=== PATIENT | male | born 1955 | race Caucasian/White ===

== ENCOUNTER 2017-09-19 11:32 | Observation (INO) ==
[2017-09-19 12:16] LABS: Basophils # 0.1 K/mcL (0.0-0.2); Basophils % 0.5 %; Eosinophils # 0.3 K/mcL (0.0-0.6); Eosinophils % 2.6 %; Hematocrit 36.5 % (37.5-50.1); Hemoglobin 12.3 g/dL (12.9-16.9); Immature Granulocytes % 0.5 % (0-4); Lymphocytes % 8.2 %; Mean Corpuscular HGB Conc 33.7 g/dL (31.6-35.5); Mean Corpuscular Volume 95.1 fL (83.0-100.0); Mean Platelet Volume 9.5 fL (9.4-12.4); Monocytes # 1.2 K/mcL (0.0-1.3); Monocytes % 9.6 %; Neutrophils # 9.5 K/mcL (1.6-8.9); Platelet Count 255 K/mcL (140-400); Red Blood Count 3.84 M/mcL (4.19-5.50); Red Cell Distribution Width 12.6 % (11.5-14.5); Segmented Neutrophils % 78.6 %
[2017-09-19 12:40] LABS: Troponin I < 0.03 ng/mL (< 0.04)
--- NOTE | 2017-09-19 13:03 | Emergency Department Note ---
Disposition Clinical Impression: Congestive heart failure Qualifiers: Heart failure type: combined systolic and diastolic Heart failure chronicity: acute on chronic Qualified Code(s): I50.43 - Acute on chronic combined systolic (congestive) and diastolic (congestive) heart failure Disposition: Admitted As Inpatient Condition: Undetermined Time of Disposition: 15:09 SOB HPI - General Chief Complaint: ED Shortness of Breath/Dyspnea Stated Complaint: "CHF" sent by Time Seen by Provider: 09/19/17 12:59 Source: patient Mode of arrival: ambulatory Limitations: no limitations Nursing Notes Reviewed: Yes Vital Signs Reviewed: Yes - History of Present Illness 62-year-old male with history of hypertension, hyperlipidemia, stage IV kidney disease, arrives to the emergency department complaining of increased swelling in bilateral lower extremities, orthopnea, dyspnea, chest pressure over the course the past few days. This progressively worsened. 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 Patient denies any difficulty breathing upon ambulation states is primarily when he lays down. The patient denies any previous history of swelling of bilateral extremity is this bad. He denies any abdominal pain, numbness, tingling, fevers, chills, rashes. - Related Data Home Medications Medication Instructions Recorded Confirmed Atorvastatin [Lipitor] 40 mg PO HS 02/26/15 06/30/16 Carvedilol [Coreg] 25 mg PO BID 02/26/15 06/30/16 Fluticasone Propionate [Flovent 50 mcg IH BID 02/26/15 06/30/16 Diskus] Hydralazine HCl 50 mg PO TID 02/26/15 06/30/16 Minoxidil 10 mg PO DAILY 02/26/15 06/30/16 NIFEdipine [Nifedical Xl] 60 mg PO BID 02/26/15 06/30/16 Nortriptyline [Pamelor] 25 mg PO HS 02/26/15 06/30/16 OxyCODONE/APAP 7.5/325 [Percocet 1 each PO Q6HR PRN 02/26/15 06/30/16 7.5/325] Albuterol Sulfate [Ventolin Hfa] 2 puff IH BID PRN 06/30/16 06/30/16 Ascorbate Calcium [Vitamin C] 500 mg PO DAILY 06/30/16 06/30/16 Aspirin 81 mg PO DAILY 06/30/16 06/30/16 BuPROPion XL (24 HR) [Wellbutrin 150 mg PO BID 06/30/16 06/30/16 Xl] Cholecalciferol (D-3) [Vitamin D] 1,000 unit PO DAILY 06/30/16 06/30/16 Cyanocobalamin (Vitamin B-12) 1,000 mcg SL DAILY 06/30/16 06/30/16 [Vitamin B-12] Esomeprazole Magnesium [Nexium] 20 mg PO DAILY 06/30/16 06/30/16 Ferrous Sulfate [Iron] 325 mg PO DAILY 06/30/16 06/30/16 Lysine HCl [l-Lysine] 500 mg PO DAILY 06/30/16 06/30/16 Magnesium Amino Acid Chelate 100 mg PO TID 06/30/16 06/30/16 [Magnesium] Melatonin 5 mg PO HS 06/30/16 06/30/16 Multivit-Min/FA/Lycopen/Lutein 1 each PO DAILY 06/30/16 06/30/16 [Centrum Silver Tablet] [place]-3/Dha/Epa/Fish Oil [Fish Oil 1 each PO DAILY 06/30/16 06/30/16 1,000 mg Softgel] Pregabalin [Lyrica] 150 mg PO HS 06/30/16 06/30/16 Testosterone Cypionate 100 mg IM QWEEK 06/30/16 06/30/16 [Depo-Testosterone] Trazodone HCl 50 mg PO HS 06/30/16 06/30/16 cloNIDine HCl [CloNIDine HCl] 0.1 mg PO HS 06/30/16 06/30/16 Allergies Allergy/AdvReac Type Severity Reaction Status Date / Time No Known Allergies Allergy Verified 06/30/16 10:28 All systems ED: reviewed and negative except as stated. Constitutional: Denies: fever, chills, weakness ENT ED: Denies: congestion Cardiovascular: Reports: chest pain, orthopnea, edema. Denies: dyspnea on exertion, syncope Respiratory: Reports: dyspnea. Denies: cough, wheezes, sputum production Gastrointestinal: Denies: abdominal pain Genitourinary: Denies: urgency, dysuria Musculoskeletal: Denies: back pain, neck pain, arthralgia, myalgia Integumentary: Denies: rash Neurological: Denies: headache Past Medical History - Past Medical History Attestation: Yes The following information was validated with the patient. Source: patient, old records reviewed Medical history: Reports: coronary artery disease, GERD, hyperlipidemia, hypertension, renal disease Surgical history: Reports: non-contributory Psychiatric history: Reports: no psych history - Social History Smoking Status: Never smoker Smokeless Tobacco Status: No Alcohol use: Reports: none Drug use: Reports: none Physical Exam - General Limitations: no limitations General appearance: alert, in no apparent distress - Head Head exam: atraumatic, normocephalic, normal inspection - Eye Eye exam: Present: normal appearance, PERRL, EOMI - ENT ENT exam: normal exam, normal oropharynx, mucous membranes moist - Neck Neck exam: Present: normal inspection, full ROM, trachea midline - Chest Chest inspection: Present: normal inspection, symmetric chest wall rise - Respiratory Respiratory exam: Present: other (Mild rhonchi noted in bilateral lower lobes) - Cardiovascular Cardiovascular exam: Present: regular rate, normal rhythm, normal heart sounds - Abdominal Exam Abdominal exam: Present: soft, Non-Tender, distention. Absent: tenderness, guarding, rebound, rigidity, Quintero's sign, Rovsing's sign, tenderness at McBurney's Point, pulsatile mass - Extremities Exam Extremities exam: Present: normal inspection, full ROM, pedal edema (2+ pitting) . Absent: tenderness - Neurological Exam Neurological exam: Present: alert, oriented X3 - Skin Skin exam: Present: warm, dry, intact, normal color Course - Consultations Consultation #1: We spoke with Dr. Theodore who recommended 40 of IV Lasix at this time. We will get the patient to the hospital. She agrees to consult. Time: 15:27 Vital Signs Temperature 97.8 F 09/19/17 11:37 Pulse Rate 89 09/19/17 11:37 Respiratory Rate 22 09/19/17 11:37 Blood Pressure 133/78 09/19/17 11:37 O2 Sat by Pulse Oximetry 93 09/19/17 11:37 Temperature 97.8 F 09/19/17 11:37 Pulse Rate 89 09/19/17 11:37 Respiratory Rate 22 09/19/17 11:37 Blood Pressure 133/78 09/19/17 11:37 O2 Sat by Pulse Oximetry 93 04/18/18 11:37 Oxygen Delivery Oxygen Delivery Room Air Shortness of Breath/Dyspnea - MDM Narrative Medical decision making narrative: Patient's workup in the emergency department demonstrates findings consistent with CHF. Given the patient's orthopnea combined with bilateral lower surety pain, we will admit the patient to the hospital for further workup and care at this time. The patient has pulmonary vascular congestion without any pulmonary edema. Patient agrees to plan of care. No further questions or concerns noted. Accepted by Dr. Morelos. - Lab Data Lab results reviewed: Yes I reviewed the patient's lab results. Result diagrams: 09/19/17 11:52 09/19/17 11:52 Lab Results 09/19/17 09/19/17 09/19/17 Range/Units 11:52 11:52 11:52 WBC 12.0 H (4.3-11.1) K/mcL RBC 3.84 L (4.19-5.50) M/mcL Hgb 12.3 L (12.9-16.9) g/dL Hct 36.5 L (37.5-50.1) % MCV 95.1 (83.0-100.0) fL MCH 32.0 (28.0-33.3) pg MCHC 33.7 (31.6-35.5) g/dL RDW 12.6 (11.5-14.5) % Plt Count 255 (140-400) K/mcL MPV 9.5 (9.4-12.4) fL Immature Gran % 0.5 (0-4) % Seg Neutrophils % 78.6 % Lymphocytes % 8.2 % Monocytes % 9.6 % Eosinophils % 2.6 % Basophils % 0.5 % Neutrophils # 9.5 H (1.6-8.9) K/mcL Lymphocytes # 1.0 (0.6-4.6) K/mcL Monocytes # 1.2 (0.0-1.3) K/mcL Eosinophils # 0.3 (0.0-0.6) K/mcL Basophils # 0.1 (0.0-0.2) K/mcL Sodium 138 (136-145) mEq/L Potassium 4.4 (3.5-5.1) mEq/L Chloride 107 (98-107) mEq/L Carbon Dioxide 23 (23-29) mEq/L BUN 42 H (8-23) mg/dL Creatinine 2.58 H (0.70-1.30) mg/dL Est GFR ( Amer) 31 L (> 60) Est GFR (Non-Af Amer) 26 L (> 60) BUN/Creatinine Ratio 16 (6-26) Glucose 169 H (70-105) mg/dL Calculated Osmolality 300 (280-300) Lactic Acid 1.5 (0.5-2.2) mmol/L Calcium 9.5 (8.6-10.3) mg/dL Troponin I < 0.03 (< 0.04) ng/mL B-Natriuretic Peptide (Less than 100) pg/mL 09/19/17 Range/Units 11:52 WBC (4.3-11.1) K/mcL RBC (4.19-5.50) M/mcL Hgb (12.9-16.9) g/dL Hct (37.5-50.1) % MCV (83.0-100.0) fL MCH (28.0-33.3) pg MCHC (31.6-35.5) g/dL RDW (11.5-14.5) % Plt Count (140-400) K/mcL MPV (9.4-12.4) fL Immature Gran % (0-4) % Seg Neutrophils % % Lymphocytes % % Monocytes % % Eosinophils % % Basophils % % Neutrophils # (1.6-8.9) K/mcL Lymphocytes # (0.6-4.6) K/mcL Monocytes # (0.0-1.3) K/mcL Eosinophils # (0.0-0.6) K/mcL Basophils # (0.0-0.2) K/mcL Sodium (136-145) mEq/L Potassium (3.5-5.1) mEq/L Chloride (98-107) mEq/L Carbon Dioxide (23-29) mEq/L BUN (8-23) mg/dL Creatinine (0.70-1.30) mg/dL Est GFR ( Amer) (> 60) Est GFR (Non-Af Amer) (> 60) BUN/Creatinine Ratio (6-26) Glucose (70-105) mg/dL Calculated Osmolality (280-300) Lactic Acid (0.5-2.2) mmol/L Calcium (8.6-10.3) mg/dL Troponin I (< 0.04) ng/mL B-Natriuretic Peptide 826 H (Less than 100) pg/mL - Radiology Data Radiology results reviewed: Yes I reviewed the patient's radiology results. Chest X-Ray 09/19/17 11:40 IMPRESSION: Findings suggest congestive heart failure D/ / Adama Lopez MD / Adama Lopez MD Interpreting Provider: Adama Lopez MD - EKG Data EKG attestation: Yes I reviewed and interpreted this EKG. EKG results narrative: 6 heart rate 65 beats for minute. Normal sinus rhythm. No ST elevation or ST depression noted. EKG similar appearance to EKG from 06/22/16.
[2017-09-19 13:22] LABS: BUN/Creatinine Ratio 16 (6-26); Blood Urea Nitrogen 42 mg/dL (8-23); Calcium 9.5 mg/dL (8.6-10.3); Carbon Dioxide 23 mEq/L (23-29); Chloride 107 mEq/L (98-107); Glucose 169 mg/dL (70-105); Osmolality,Calculated 300 (280-300); Potassium 4.4 mEq/L (3.5-5.1); Sodium 138 mEq/L (136-145); eGFR For African Americans 31 (> 60); eGFR For Non-African Americans 26 (> 60)
--- NOTE | 2017-09-19 14:59 | Emergency Department Note ---
Disposition Clinical Impression: Congestive heart failure Qualifiers: Heart failure type: combined systolic and diastolic Heart failure chronicity: acute on chronic Qualified Code(s): I50.43 - Acute on chronic combined systolic (congestive) and diastolic (congestive) heart failure Disposition: Admitted As Inpatient Condition: Undetermined Referrals: Kayla Hamilton CNP [Primary Care Provider] - Forms: ED Satisfaction Letter General Adult HPI - General Chief complaint: ED Shortness of Breath/Dyspnea Stated complaint: "CHF" sent by Time Seen by Provider: 09/19/17 12:59 Source: patient Mode of arrival: ambulatory Limitations: no limitations - History of Present Illness Pain Scale: 8 - Related Data Home Medications Medication Instructions Recorded Confirmed Atorvastatin [Lipitor] 40 mg PO HS 02/26/15 06/30/16 Carvedilol [Coreg] 25 mg PO BID 02/26/15 06/30/16 Fluticasone Propionate [Flovent 50 mcg IH BID 02/26/15 06/30/16 Diskus] Hydralazine HCl 50 mg PO TID 02/26/15 06/30/16 Minoxidil 10 mg PO DAILY 02/26/15 06/30/16 NIFEdipine [Nifedical Xl] 60 mg PO BID 02/26/15 06/30/16 Nortriptyline [Pamelor] 25 mg PO HS 02/26/15 06/30/16 OxyCODONE/APAP 7.5/325 [Percocet 1 each PO Q6HR PRN 02/26/15 06/30/16 7.5/325] Albuterol Sulfate [Ventolin Hfa] 2 puff IH BID PRN 06/30/16 06/30/16 Ascorbate Calcium [Vitamin C] 500 mg PO DAILY 06/30/16 06/30/16 Aspirin 81 mg PO DAILY 06/30/16 06/30/16 BuPROPion XL (24 HR) [Wellbutrin 150 mg PO BID 06/30/16 06/30/16 Xl] Cholecalciferol (D-3) [Vitamin D] 1,000 unit PO DAILY 06/30/16 06/30/16 Cyanocobalamin (Vitamin B-12) 1,000 mcg SL DAILY 06/30/16 06/30/16 [Vitamin B-12] Esomeprazole Magnesium [Nexium] 20 mg PO DAILY 06/30/16 06/30/16 Ferrous Sulfate [Iron] 325 mg PO DAILY 06/30/16 06/30/16 Lysine HCl [l-Lysine] 500 mg PO DAILY 06/30/16 06/30/16 Magnesium Amino Acid Chelate 100 mg PO TID 06/30/16 06/30/16 [Magnesium] Melatonin 5 mg PO HS 06/30/16 06/30/16 Multivit-Min/FA/Lycopen/Lutein 1 each PO DAILY 06/30/16 06/30/16 [Centrum Silver Tablet] [place]-3/Dha/Epa/Fish Oil [Fish Oil 1 each PO DAILY 06/30/16 06/30/16 1,000 mg Softgel] Pregabalin [Lyrica] 150 mg PO HS 06/30/16 06/30/16 Testosterone Cypionate 100 mg IM QWEEK 06/30/16 06/30/16 [Depo-Testosterone] Trazodone HCl 50 mg PO HS 06/30/16 06/30/16 cloNIDine HCl [CloNIDine HCl] 0.1 mg PO HS 06/30/16 06/30/16 Allergies Allergy/AdvReac Type Severity Reaction Status Date / Time No Known Allergies Allergy Verified 06/30/16 10:28 Constitutional: Denies: fever, chills, weakness ENT ED: Denies: congestion Cardiovascular: Reports: chest pain, orthopnea, edema. Denies: dyspnea on exertion, syncope Respiratory: Reports: dyspnea. Denies: cough, wheezes, sputum production Gastrointestinal: Denies: abdominal pain Genitourinary: Denies: urgency, dysuria Musculoskeletal: Denies: back pain, neck pain, arthralgia, myalgia Integumentary: Denies: rash Neurological: Denies: headache Past Medical History - Past Medical History Medical history: Reports: coronary artery disease, GERD, hyperlipidemia, hypertension, renal disease Surgical history: Reports: non-contributory Psychiatric history: Reports: no psych history - Social History Smoking Status: Never smoker Smokeless Tobacco Status: No Alcohol use: Reports: none Drug use: Reports: none Physical Exam - General Limitations: no limitations General appearance: alert, in no apparent distress Course Vital Signs Temperature 97.8 F 09/19/17 11:37 Pulse Rate 89 09/19/17 11:37 Respiratory Rate 22 09/19/17 11:37 Blood Pressure 133/78 09/19/17 11:37 O2 Sat by Pulse Oximetry 93 09/19/17 11:37 Temperature 97.8 F 09/19/17 11:37 Pulse Rate 89 09/19/17 11:37 Respiratory Rate 22 09/19/17 11:37 Blood Pressure 133/78 09/19/17 11:37 O2 Sat by Pulse Oximetry 93 09/19/17 11:37 Oxygen Delivery Oxygen Delivery Room Air Medical Decision Making - Lab Data Result diagrams: 09/19/17 11:52 09/19/17 11:52 Lab Results 09/19/17 09/19/17 09/19/17 Range/Units 11:52 11:52 11:52 WBC 12.0 H (4.3-11.1) K/mcL RBC 3.84 L (4.19-5.50) M/mcL Hgb 12.3 L (12.9-16.9) g/dL Hct 36.5 L (37.5-50.1) % MCV 95.1 (83.0-100.0) fL MCH 32.0 (28.0-33.3) pg MCHC 33.7 (31.6-35.5) g/dL RDW 12.6 (11.5-14.5) % Plt Count 255 (140-400) K/mcL MPV 9.5 (9.4-12.4) fL Immature Gran % 0.5 (0-4) % Seg Neutrophils % 78.6 % Lymphocytes % 8.2 % Monocytes % 9.6 % Eosinophils % 2.6 % Basophils % 0.5 % Neutrophils # 9.5 H (1.6-8.9) K/mcL Lymphocytes # 1.0 (0.6-4.6) K/mcL Monocytes # 1.2 (0.0-1.3) K/mcL Eosinophils # 0.3 (0.0-0.6) K/mcL Basophils # 0.1 (0.0-0.2) K/mcL Sodium 138 (136-145) mEq/L Potassium 4.4 (3.5-5.1) mEq/L Chloride 107 (98-107) mEq/L Carbon Dioxide 23 (23-29) mEq/L BUN 42 H (8-23) mg/dL Creatinine 2.58 H (0.70-1.30) mg/dL Est GFR ( Amer) 31 L (> 60) Est GFR (Non-Af Amer) 26 L (> 60) BUN/Creatinine Ratio 16 (6-26) Glucose 169 H (70-105) mg/dL Calculated Osmolality 300 (280-300) Lactic Acid 1.5 (0.5-2.2) mmol/L Calcium 9.5 (8.6-10.3) mg/dL Troponin I < 0.03 (< 0.04) ng/mL B-Natriuretic Peptide (Less than 100) pg/mL 09/19/17 Range/Units 11:52 WBC (4.3-11.1) K/mcL RBC (4.19-5.50) M/mcL Hgb (12.9-16.9) g/dL Hct (37.5-50.1) % MCV (83.0-100.0) fL MCH (28.0-33.3) pg MCHC (31.6-35.5) g/dL RDW (11.5-14.5) % Plt Count (140-400) K/mcL MPV (9.4-12.4) fL Immature Gran % (0-4) % Seg Neutrophils % % Lymphocytes % % Monocytes % % Eosinophils % % Basophils % % Neutrophils # (1.6-8.9) K/mcL Lymphocytes # (0.6-4.6) K/mcL Monocytes # (0.0-1.3) K/mcL Eosinophils # (0.0-0.6) K/mcL Basophils # (0.0-0.2) K/mcL Sodium (136-145) mEq/L Potassium (3.5-5.1) mEq/L Chloride (98-107) mEq/L Carbon Dioxide (23-29) mEq/L BUN (8-23) mg/dL Creatinine (0.70-1.30) mg/dL Est GFR ( Amer) (> 60) Est GFR (Non-Af Amer) (> 60) BUN/Creatinine Ratio (6-26) Glucose (70-105) mg/dL Calculated Osmolality (280-300) Lactic Acid (0.5-2.2) mmol/L Calcium (8.6-10.3) mg/dL Troponin I (< 0.04) ng/mL B-Natriuretic Peptide 826 H (Less than 100) pg/mL Attestation Statement - Attestation Attestation: I examined this patient and my medical decision-making was reviewed with the Resident Physician. I agree with the documented findings, disposition and treatment plan as described except to the extent set forth below. Patient to the ED with a chief complaint of CHF. Diagnosis for him. Patient has kidney disease states he cannot put him on Lasix because of his renal function. He has had increased swelling and dyspnea on exertion. On exam he is not in any distress sitting in bed. Rales in bases and pitting edema to his lower extremities. Plan. Cardiac workup shows elevated BNP. Chest x-ray consistent with CHF. Patient will be admitted to medicine.
[2017-09-19] MEDS ORDERED: Furosemide 40 MG/4 ML VIAL IVP ONE (15:26)
[2017-09-19] MEDS ORDERED: Naloxone 0.4 MG/ML INJ IVP PRN (16:58)
[2017-09-19] MEDS: *HR* OxyCODONE/APAP 7.5/325 TABLET PO SCH (18:46)
--- NOTE | 2017-09-19 18:53 | Internal Med History&Physical ---
<Dre Agosto J - Last Filed: 09/19/17 18:49> Date of Encounter: 09/19/17 Time of Encounter: 18:49 Internal Medicine - H&P: HPI Chief complaint: Shortness of breath, cough and bilateral lower extremity swelling Admitted From: Home Plans for Post Hospital Care: Home History of present illness: Mr. Bolanos is a 62 year old male with a PMH of CAD, GERD, HLD, HTN and CKD stage IV. 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 He reports that his shortness of breath is ongoing and has been getting progressively worse as has his swelling. His shortness of breath is aggravated with exertion and minimally improves with rest. He denies any fever, chills, dizziness, abdominal pain, nausea, vomiting, diarrhea, dysuria, extremity pain. Chest x-ray today shows congestive heart failure, BNP of 826. He is being admitted d/t continued dyspnea secondary to CHF Past Med Surg Social Fam HX - Past Medical History Medical history: coronary artery disease, GERD, hyperlipidemia, hypertension, peripheral artery disease, renal disease Psychiatric history: anxiety - Past Surgical History Surgical History: non-contributory - Social History Smoking Status: Current every day smoker Packs per day: <1 Smokeless Tobacco Status: No Alcohol use: rarely Drug use: none - Family History Mother History Unknown: Yes Internal Medicine - H&P: Meds Atorvastatin [Lipitor] 40 mg PO HS 02/26/15 [History] Carvedilol [Coreg] 25 mg PO BID 02/26/15 [History] Hydralazine HCl 100 mg PO TID 02/26/15 [History] Minoxidil 10 mg PO DAILY 02/26/15 [History] NIFEdipine [Nifedical Xl] 60 mg PO BID 02/26/15 [History] OxyCODONE/APAP 7.5/325 [Percocet 7.5/325] 1 each PO Q4HR 02/26/15 [History] Albuterol Sulfate [Ventolin Hfa] 2 puff IH BID PRN 06/30/16 [History] Ascorbate Calcium [Vitamin C] 500 mg PO DAILY 06/30/16 [History] Aspirin 81 mg PO DAILY 06/30/16 [History] BuPROPion XL (24 HR) [Wellbutrin Xl] 150 mg PO BID 06/30/16 [History] Cholecalciferol (D-3) [Vitamin D] 1,000 unit PO DAILY 06/30/16 [History] Cyanocobalamin (Vitamin B-12) [Vitamin B-12] 1,000 mcg SL DAILY 06/30/16 [ History] Ferrous Sulfate [Iron] 325 mg PO DAILY 06/30/16 [History] Multivit-Min/FA/Lycopen/Lutein [Centrum Silver Tablet] 1 each PO DAILY 06/30/16 [History] [place]-3/Dha/Epa/Fish Oil [Fish Oil 1,000 mg Softgel] 1 each PO DAILY 06/30/16 [ History] Testosterone Cypionate [Depo-Testosterone] 100 mg IM QWEEK 06/30/16 [History] Fluticasone Propionate Nasal [Flonase] 1 spr NS BID 09/19/17 [History] Meclizine HCl [Verticalm] 25 mg PO Q6H 09/19/17 [History] Ondansetron ODT [Zofran ODT] 4 mg SL Q4HR 09/19/17 [History] Pregabalin [Lyrica] 75 mg PO BID 09/19/17 [History] Umeclidinium Brm/Vilanterol Tr [Anoro Ellipta 62.5-25 Mcg INH] 1 puff IH DAILY 09/19/17 [History] Vitamin E (Dl,Tocopheryl Acet) [Vitamin E] 400 unit PO DAILY 09/19/17 [History] clonazePAM [Klonopin] 1 tab PO BID 09/19/17 [History] hydroCHLOROthiazide [Hydrochlorothiazide] 25 mg PO DAILY 09/19/17 [History] 3 Allergy/AdvReac Type Severity Reaction Status Date / Time No Known Allergies Allergy Verified 06/30/16 10:28 All Systems PM: A 10-system review of systems was performed and is negative for pertinent findings except as documented above in the HPI. Review of systems: REVIEW OF SYSTEMS GENERAL: Negative for any nausea, vomiting, fevers, chills, or weight loss. NEUROLOGIC: Negative for any blurry vision, blind spots, double vision, facial asymmetry, dysphagia, dysarthria, hemiparesis, hemisensory deficits, vertigo, ataxia. HEENT: Negative for any head trauma, neck trauma, neck stiffness, photophobia, phonophobia, sinusitis, rhinitis. CARDIAC: Positive for chest pain, bilateral lower extremity peripheral edema, orthopnea and dyspnea on exertion PULMONARY: Negative for any wheezing, COPD, or TB exposure. GASTROINTESTINAL: Negative for any abdominal pain, nausea, vomiting, bright red blood per rectum, melena. GENITOURINARY: Negative for any dysuria, hematuria, incontinence. INTEGUMENTARY: Negative for any rashes, cuts, insect bites. RHEUMATOLOGIC: Negative for any joint pains, photosensitive rashes, history of vasculitis or kidney problems. HEMATOLOGIC: Negative for any abnormal bruising, frequent infections or bleeding. - Constitutional Vitals: Temp Pulse Resp BP Pulse Ox 97.3 F L 69 15 167/84 92 09/19/17 16:42 09/19/17 16:42 09/19/17 16:42 09/19/17 16:42 09/19/17 16:42 General appearance: Present: cooperative, A&O X 3, no acute distress, answers questions appropriately Exam: PHYSICAL EXAMINATION: GENERAL: The patient is an ill-appearing male in mild respiratory distress. He is alert and oriented x3. HEENT: Head is normocephalic and atraumatic. Extraocular muscles are intact. Pupils are equal, round, and reactive to light and accommodation. NECK: Supple. No carotid bruits. No lymphadenopathy or thyromegaly. LUNGS: Diminished to auscultation with bilateral posterior lobe fine crackles HEART: Regular rate and rhythm without murmur S1, S2. ABDOMEN: Soft, nontender, and nondistended. Positive bowel sounds. No hepatosplenomegaly was noted. EXTREMITIES: 1+ BLE pitting edema SKIN: No ulceration rashes or lesions present Internal Med - H&P Results - Labs CBC & Chem 7: 09/19/17 11:52 09/19/17 11:52 - EKG Data -: EKG Interpreted by Myself EKG shows normal: sinus rhythm - EKG Data EKG comments: I have reviewed the EKG, normal sinus rhythm rate of [address] elevation or depression noted 09/19/17 19:14 - Assessment and plan (1) Congestive heart failure Current Visit: Yes Status: Acute Assessment and plan: Presents today with dyspnea, and increased swelling in BLE with 1 + pitting edema He was instructed to come to the ED following his nephrology appointment today Has a history of stage IV renal disease -No recent echo on file -TTE -CXR concerning for congestive heart failure -BNP 826 -start Lasix 40 mg IV push twice a day- further recommendations for diuretic use per Nephrology -Strict intake and output monitoring -Daily weights -Continuous telemetry, continuous SPO2 monitoring -O2 per nasal cannula titrate to maintain SPO2 greater than 92% -CBCD, BMP in am -Continue home medications -Consult to nephrology-ED physician spoke Dr. Dahl's group who will see in consultation. Qualifiers: Heart failure type: combined systolic and diastolic Heart failure chronicity: acute on chronic Qualified Code(s): I50.43 - Acute on chronic combined systolic (congestive) and diastolic (congestive) heart failure (2) CAD (coronary artery disease) Current Visit: Yes Status: Acute Assessment and plan: Continue aspirin, Lipitor, Coreg, hydralazine Qualifiers: Coronary Disease-Associated Artery/Lesion type: unspecified vessel or lesion type [place] vs. transplanted heart: [place] heart Associated angina: angina presence unspecified Qualified Code(s): I25.10 - Atherosclerotic heart disease of [place] coronary artery without angina pectoris (3) GERD (gastroesophageal reflux disease) Current Visit: Yes Status: Acute Qualifiers: Qualified Code(s): K21.9 - Gastro-esophageal reflux disease without esophagitis (4) HLD (hyperlipidemia) Current Visit: Yes Status: Acute Qualifiers: Hyperlipidemia type: unspecified Qualified Code(s): E78.5 - Hyperlipidemia , unspecified (5) HTN (hypertension) Current Visit: Yes Status: Acute Assessment and plan: Continue anti-HTN medications Qualifiers: Hypertension type: unspecified Qualified Code(s): I10 - Essential (primary ) hypertension (6) CKD (chronic kidney disease), stage IV Current Visit: Yes Status: Acute Assessment and plan: History of CKD stage IV, follows with Dr. Coon's group. Today's serum creatinine, BUN and GFR at patient's baseline. -Consult to nephrology (7) DVT prophylaxis Current Visit: Yes Status: Acute Assessment and plan: Heparin 5000 units SC BID - Time Spent With Patient Total time spent is greater than 50% in coordination of care (as documented) at patient's floor/unit and/or counseling patient: 25 - 35 minutes <Lacey Jasso - Last Filed: 09/19/17 21:12> Date of Encounter: 09/19/17 Internal Medicine - H&P: HPI History of present illness: Mr. Bolanos is a 62 year old male Past Med Surg Social Fam HX - Family History Mother History Unknown: Yes Father Living Status: Hx Family Cardiac Disorders: Yes All Systems PM: A 10-system review of systems was performed and is negative for pertinent findings except as documented above in the HPI. - Constitutional Vitals: Temp Pulse Resp BP Pulse Ox 98.1 F 65 16 183/93 95 09/19/17 20:57 09/19/17 20:57 09/19/17 20:57 09/19/17 20:57 09/19/17 20:57 Internal Med - H&P Results - Labs CBC & Chem 7: 09/19/17 11:52 09/19/17 11:52 - Attending Attestation Reviewed and agreed with the plan. - Assessment and plan (1) Congestive heart failure Current Visit: Yes Status: Acute Qualifiers: Heart failure type: combined systolic and diastolic Heart failure chronicity: acute on chronic Qualified Code(s): I50.43 - Acute on chronic combined systolic (congestive) and diastolic (congestive) heart failure (2) CAD (coronary artery disease) Current Visit: Yes Status: Acute Qualifiers: Coronary Disease-Associated Artery/Lesion type: unspecified vessel or lesion type [place] vs. transplanted heart: [place] heart Associated angina: angina presence unspecified Qualified Code(s): I25.10 - Atherosclerotic heart disease of [place] coronary artery without angina pectoris (3) GERD (gastroesophageal reflux disease) Current Visit: Yes Status: Acute Qualifiers: Qualified Code(s): K21.9 - Gastro-esophageal reflux disease without esophagitis (4) HLD (hyperlipidemia) Current Visit: Yes Status: Acute Qualifiers: Hyperlipidemia type: unspecified Qualified Code(s): E78.5 - Hyperlipidemia , unspecified (5) HTN (hypertension) Current Visit: Yes Status: Acute Qualifiers: Hypertension type: unspecified Qualified Code(s): I10 - Essential (primary ) hypertension (6) CKD (chronic kidney disease), stage IV Current Visit: Yes Status: Acute (7) DVT prophylaxis Current Visit: Yes Status: Acute - Time Spent With Patient Total time spent is greater than 50% in coordination of care (as documented) at patient's floor/unit and/or counseling patient:
[2017-09-19] MEDS ORDERED: clonazePAM 0.5 MG TABLET PO SCH (21:00)
[2017-09-19] MEDS: Pregabalin 75 MG CAPSULE PO SCH (21:39)
[2017-09-19] MEDS: BuPROPion XL (24 HR) 150 MG TABLET PO SCH (21:39)
[2017-09-19] MEDS: NIFEdipine XL (24 HR) 60 MG TAB.ER.24 PO SCH (21:40)
[2017-09-19] MEDS: clonazePAM 0.5 MG TABLET PO SCH (21:40)
[2017-09-19] MEDS: hydrALAZINE 25 MG TABLET PO SCH (21:41)
[2017-09-20] MEDS: *HR* OxyCODONE/APAP 7.5/325 TABLET PO SCH ×3 (00:04→08:20)
[2017-09-20] MEDS: Fluticasone Propionate Nasal 50 MCG/SPRAY BOTTLE NS SCH ×3 (00:04→21:39)
[2017-09-20 04:04] LABS: Basophils % 0.5 %; Eosinophils # 0.3 K/mcL (0.0-0.6); Eosinophils % 3.2 %; Hematocrit 34.2 % (37.5-50.1); Hemoglobin 11.6 g/dL (12.9-16.9); Immature Granulocytes % 0.5 % (0-4); Lymphocytes # 1.1 K/mcL (0.6-4.6); Mean Corpuscular HGB Conc 33.9 g/dL (31.6-35.5); Mean Corpuscular Hemoglobin 32.8 pg (28.0-33.3); Mean Corpuscular Volume 96.6 fL (83.0-100.0); Mean Platelet Volume 9.5 fL (9.4-12.4); Monocytes # 0.8 K/mcL (0.0-1.3); Monocytes % 10.1 %; Neutrophils # 5.5 K/mcL (1.6-8.9); Platelet Count 252 K/mcL (140-400); Red Blood Count 3.54 M/mcL (4.19-5.50); Red Cell Distribution Width 12.5 % (11.5-14.5); Segmented Neutrophils % 71.7 %
[2017-09-20 04:31] LABS: Calcium 9.1 mg/dL (8.6-10.3); Potassium 4.8 mEq/L (3.5-5.1)
[2017-09-20] MEDS: *HR* Heparin 5,000 UNIT/ML VIAL SQ SCH ×2 (05:13→16:46)
[2017-09-20] MEDS: Pregabalin 75 MG CAPSULE PO SCH ×2 (08:08→21:38)
[2017-09-20] MEDS: hydrALAZINE 25 MG TABLET PO SCH ×3 (08:08→21:38)
[2017-09-20] MEDS: hydroCHLOROthiazide 25 MG TABLET PO SCH (08:08)
[2017-09-20] MEDS: Multivit/Ca/Min/Fe/FA 1 TAB TABLET PO SCH (08:08)
[2017-09-20] MEDS: Ascorbic Acid 500 MG TABLET PO SCH (08:08)
[2017-09-20] MEDS: BuPROPion XL (24 HR) 150 MG TABLET PO SCH ×2 (08:08→21:38)
[2017-09-20] MEDS: NIFEdipine XL (24 HR) 60 MG TAB.ER.24 PO SCH ×2 (08:09→21:38)
[2017-09-20] MEDS: Cholecalciferol (D-3) 1,000 UNIT TABLET PO SCH (08:09)
[2017-09-20] MEDS: Cyanocobalamin (B-12) 1,000 MCG TABLET PO SCH (08:09)
[2017-09-20] MEDS: clonazePAM 0.5 MG TABLET PO SCH ×2 (08:09→21:38)
[2017-09-20] MEDS: Aspirin 81 MG TAB.CHEW PO SCH (08:09)
[2017-09-20] MEDS: Furosemide 40 MG/4 ML VIAL IVP SCH ×2 (08:09→16:46)
[2017-09-20] MEDS ORDERED: (Umeclidinium Brm/Vilanterol Tr [Anoro Ellipta 62.5-2) IH SCH (09:00)
[2017-09-20] MEDS ORDERED: (Omega-3/Dha/Epa/Fish Oil [Fish Oil 1,000 Mg Softgel]) PO SCH (09:00)
--- NOTE | 2017-09-20 10:36 | Internal Med Progress Note ---
Date of Encounter: 09/20/17 Time of Encounter: 10:34 - Assessment and plan (1) Congestive heart failure Current Visit: Yes Status: Acute Assessment and plan: Patient has lower extremity edema that he says is nothing like his baseline. He has also been complaining of shortness of breath. He was found to have findings of CHF on x-ray with elevated BNP. He was recently admitted and discharged for CHF from an outside facility. We will continue with diuresis and monitor his kidney function given his history of chronic kidney disease stage IV. Nephrology is consulted. We will request records. Monitor I&O's. Echo is pending. Possible discharge tomorrow. Qualifiers: Heart failure type: combined systolic and diastolic Heart failure chronicity: acute on chronic Qualified Code(s): I50.43 - Acute on chronic combined systolic (congestive) and diastolic (congestive) heart failure (2) CAD (coronary artery disease) Current Visit: Yes Status: Acute Assessment and plan: Continue aspirin, Lipitor, Coreg, hydralazine Qualifiers: Coronary Disease-Associated Artery/Lesion type: unspecified vessel or lesion type [place] vs. transplanted heart: [place] heart Associated angina: angina presence unspecified Qualified Code(s): I25.10 - Atherosclerotic heart disease of [place] coronary artery without angina pectoris (3) HLD (hyperlipidemia) Current Visit: Yes Status: Acute Assessment and plan: Continue statin Qualifiers: Hyperlipidemia type: unspecified Qualified Code(s): E78.5 - Hyperlipidemia , unspecified (4) HTN (hypertension) Current Visit: Yes Status: Acute Assessment and plan: Continue anti-HTN medications Qualifiers: Hypertension type: unspecified Qualified Code(s): I10 - Essential (primary ) hypertension (5) CKD (chronic kidney disease), stage IV Current Visit: Yes Status: Acute Assessment and plan: 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 Nephrology is consulted here. Monitor kidney function while diuresing. (6) DVT prophylaxis Current Visit: Yes Status: Acute Assessment and plan: Heparin 5000 units SC BID - Time Spent With Patient Total time spent is greater than 50% in coordination of care (as documented) at patient's floor/unit and/or counseling patient: - Subjective Interval history: Patient was seen and examined. Diuresed well. Admitted with signs of heart failure. He is on room air. Has been complaining of shortness of breath while ambulating. He tells me that he was recently discharged about a week ago from [facility] and was diagnosed with CHF. I do not have records of this. - Constitutional Vitals: Temp Pulse Resp BP Pulse Ox 97.4 F L 65 16 143/73 90 09/20/17 07:30 09/20/17 07:30 09/20/17 07:30 09/20/17 07:30 09/20/17 07:30 General appearance: Present: cooperative, A&O X 3, no acute distress, answers questions appropriately Exam: GEN: NAD CVS: RRR. S1, S2, No m/r/g RESP: Bibasilar crackles ABD: Soft, NT, ND, +BS EXT: 1+ edema. 2+ DP. No rashes NEURO: Nonfocal Internal Medicine: Result - Labs CBC & Chem 7: 09/20/17 03:44 09/20/17 03:44 Labs: Short CBC 09/20/17 Range/Units 03:44 WBC 7.7 (4.3-11.1) K/mcL Hgb 11.6 L (12.9-16.9) g/dL Hct 34.2 L (37.5-50.1) % Plt Count 252 (140-400) K/mcL Neutrophils # 5.5 (1.6-8.9) K/mcL BMP 09/20/17 03:44 Sodium 139 Potassium 4.8 Chloride 107 Carbon Dioxide 26 BUN 45 H Creatinine 2.61 H Glucose 175 H Calcium 9.1 Consult Discharge Plan - Plan Referrals: Kayla Hamilton, DITCH WORKER [Primary Care Provider] -
[2017-09-20] MEDS: Tiotropium 18 MCG inhalation IH SCH (10:44)
[2017-09-20] MEDS: *HR* OxyCODONE/APAP 7.5/325 TABLET PO PRN ×2 (16:55→22:04)
--- NOTE | 2017-09-20 23:20 | Nephrology Consult Note ---
Date of Encounter: 09/20/17 Time of Encounter: 12:00 Assessment and Plan (1) CKD (chronic kidney disease), stage IV Current Visit: Yes Status: Acute SCr at baseline UOP great on diuretics, will monitor Avoid nephrotoxins if possible Will check urine studies for proteinuria Will check pTH and vitamin D levels (2) Congestive heart failure Current Visit: Yes Status: Acute Agree with continued diuresis with lasix 40mg bid iv Strict I/Os Fluid restriction advised Qualifiers: Heart failure type: combined systolic and diastolic Heart failure chronicity: acute on chronic Qualified Code(s): I50.43 - Acute on chronic combined systolic (congestive) and diastolic (congestive) heart failure History of Present Illness - Reason for Consult Consult date: 09/20/17 Chronic Kidney Disease Requesting physician: Nathaniel Polo - History of Present Illness 62 y o male with PMH of HTN, PVD s/p multiple interventions to LE bilat, CAD and stage 4 CKD admitted with progressive LE edema and chest tightness. Pt was started on diuretics in the fall by his supervisor net making for CHF and has had complicated course developing BEHZAD with renal function worsening from stage 3 CKD to now 4. Recently, py experienced worsening in his LE edema despite lasix 20mg bid which was doubled by me with minimal improvement, he was then told to present to the ED given worsened symptoms. Pt seen and examined today already feeling much better after started on lasix iv 40mg bid with 1500cc diuresis overnight. No chest pain. SCr about baseline. Past Med Surg Social Fam HX - Past Medical History Medical history: coronary artery disease, GERD, hyperlipidemia, hypertension, peripheral artery disease, renal disease Psychiatric history: anxiety - Past Surgical History Surgical History: non-contributory - Social History Smoking Status: Current every day smoker Packs per day: <1 Smokeless Tobacco Status: No Alcohol use: rarely Drug use: none - Family History Father Living Status: Hx Family Cardiac Disorders: Yes Mother History Unknown: Yes Medications and Allergies Atorvastatin [Lipitor] 40 mg PO HS 02/26/15 [History] Carvedilol [Coreg] 25 mg PO BID 02/26/15 [History] Hydralazine HCl 100 mg PO TID 02/26/15 [History] Minoxidil 10 mg PO DAILY 02/26/15 [History] NIFEdipine [Nifedical Xl] 60 mg PO BID 02/26/15 [History] OxyCODONE/APAP 7.5/325 [Percocet 7.5/325] 1 each PO Q4HR 02/26/15 [History] Albuterol Sulfate [Ventolin Hfa] 2 puff IH BID PRN 06/30/16 [History] Ascorbate Calcium [Vitamin C] 500 mg PO DAILY 06/30/16 [History] Aspirin 81 mg PO DAILY 06/30/16 [History] BuPROPion XL (24 HR) [Wellbutrin Xl] 150 mg PO BID 06/30/16 [History] Cholecalciferol (D-3) [Vitamin D] 1,000 unit PO DAILY 06/30/16 [History] Cyanocobalamin (Vitamin B-12) [Vitamin B-12] 1,000 mcg SL DAILY 06/30/16 [ History] Ferrous Sulfate [Iron] 325 mg PO DAILY 06/30/16 [History] Multivit-Min/FA/Lycopen/Lutein [Centrum Silver Tablet] 1 each PO DAILY 06/30/16 [History] [place]-3/Dha/Epa/Fish Oil [Fish Oil 1,000 mg Softgel] 1 each PO DAILY 06/30/16 [ History] Testosterone Cypionate [Depo-Testosterone] 100 mg IM QWEEK 06/30/16 [History] Fluticasone Propionate Nasal [Flonase] 1 spr NS BID 09/19/17 [History] Meclizine HCl [Verticalm] 25 mg PO Q6H 09/19/17 [History] Ondansetron ODT [Zofran ODT] 4 mg SL Q4HR 09/19/17 [History] Pregabalin [Lyrica] 75 mg PO BID 09/19/17 [History] Umeclidinium Brm/Vilanterol Tr [Anoro Ellipta 62.5-25 Mcg INH] 1 puff IH DAILY 09/19/17 [History] Vitamin E (Dl,Tocopheryl Acet) [Vitamin E] 400 unit PO DAILY 09/19/17 [History] clonazePAM [Klonopin] 1 tab PO BID 09/19/17 [History] hydroCHLOROthiazide [Hydrochlorothiazide] 25 mg PO DAILY 09/19/17 [History] 3 Allergy/AdvReac Type Severity Reaction Status Date / Time No Known Allergies Allergy Verified 06/30/16 10:28 Review of Systems All Systems: reviewed and no additional remarkable complaints except as stated ( 10 ssytems reviewed) Exam - Vital Signs Vital signs: Initial Vital Signs Temp Pulse Resp BP Pulse Ox 97.8 F 89 22 133/78 93 09/19/17 11:37 09/19/17 11:37 09/19/17 11:37 09/19/17 11:37 09/19/17 11:37 Vital Signs - Last 8 Hours Temp Pulse Resp BP Pulse Ox 09/20/17 23:09 98.1 F 71 18 152/61 91 09/20/17 19:24 97.9 F 66 17 121/63 91 09/20/17 16:19 97.7 F 66 16 119/64 91 Intake and Output 09/20/17 09/20/17 09/20/17 07:59 15:59 23:59 Intake Total 600 / 600 840 / 840 Output Total 1200 / 1200 550 / 550 1475 / 1475 Balance -1200 / -1200 50 / 50 -635 / -635 Intake: Oral 600 / 600 840 / 840 Output: Urine 1200 / 1200 550 / 550 1475 / 1475 Other: Meal Lunch Dinner Percent of Meal Consumed 100% 100% # Voids 1 1 Weight 81.664 kg Patient Weight 09/20/17 23:59 Weight 81.664 kg - General Appearance General appearance: chronically ill (NAD) EENT: ATNC, mucous membranes moist Neck: no JVD, supple Additional Comments: good areation ant bilat Cardiology: edema (RLE>LLE), normal S1, normal S2 Gastrointestinal: no tenderness, no guarding Integumentary: warm and dry Neurologic: no focal deficit Musculoskeletal: no deformities Psychiatric: mood/affect appropriate, cooperative Results - Lab Results 09/20/17 03:44 09/20/17 03:44 Most recent lab results Calcium 9.1 mg/dL (8.6-10.3) 09/20/17 03:44 Consult Discharge Plan - Plan Referrals: Kayla Hamilton, NUCLEAR RADIATION ENGINEER [Primary Care Provider] - 09/24/17 1:00 pm (Please follow up as schedule..)
[2017-09-21] MEDS: *HR* Heparin 5,000 UNIT/ML VIAL SQ SCH (05:27)
[2017-09-21] MEDS: *HR* OxyCODONE/APAP 7.5/325 TABLET PO PRN (05:44)
[2017-09-21 06:20] LABS: Bilirubin,Urine Negative (Negative); Blood,Urine Negative (Negative); Clarity,Urine Clear (Clear); Color,Urine Yellow (Yellow); Glucose,Urine (UA) Normal (Normal); Ketones,Urine Negative (Negative); Leukocyte Esterase,Urine Negative (Negative); Nitrite,Urine Negative (Negative); Protein,Urine 100 mg/dL (Neg-Trace); Specific Gravity,Urine 1.014 (1.010-1.025); Urobilinogen,Urine Normal (Normal)
[2017-09-21 06:29] LABS: Bacteria,Urine None Seen per hpf (None-Few); Hyaline Casts,Urine None Seen per lpf (None-Few); RBC,Urine 0-3 per hpf (0-3); Squamous Epithelial Cell,Urine None Seen per lpf (None-Few); WBC,Urine 0-3 per hpf (0-3)
[2017-09-21 06:38] LABS: Protein/Creatinine Ratio,Urine 1.37 mg/mg (0.00-0.20)
[2017-09-21] MEDS: Tiotropium 18 MCG inhalation IH SCH (07:45)
[2017-09-21] MEDS: hydrALAZINE 25 MG TABLET PO SCH (08:33)
[2017-09-21] MEDS: BuPROPion XL (24 HR) 150 MG TABLET PO SCH (08:34)
[2017-09-21] MEDS: hydroCHLOROthiazide 25 MG TABLET PO SCH (08:34)
[2017-09-21] MEDS: Cholecalciferol (D-3) 1,000 UNIT TABLET PO SCH (08:34)
[2017-09-21] MEDS: NIFEdipine XL (24 HR) 60 MG TAB.ER.24 PO SCH (08:34)
[2017-09-21] MEDS: Cyanocobalamin (B-12) 1,000 MCG TABLET PO SCH (08:34)
[2017-09-21] MEDS: Multivit/Ca/Min/Fe/FA 1 TAB TABLET PO SCH (08:34)
[2017-09-21] MEDS: Aspirin 81 MG TAB.CHEW PO SCH (08:34)
[2017-09-21] MEDS: clonazePAM 0.5 MG TABLET PO SCH (08:35)
[2017-09-21] MEDS: Pregabalin 75 MG CAPSULE PO SCH (08:35)
[2017-09-21] MEDS: Furosemide 40 MG/4 ML VIAL IVP SCH (08:36)
[2017-09-21] MEDS: Ascorbic Acid 500 MG TABLET PO SCH (08:36)
[2017-09-21] MEDS: Fluticasone Propionate Nasal 50 MCG/SPRAY BOTTLE NS SCH (08:37)
[2017-09-21 09:02] LABS: Hematocrit 34.5 % (37.5-50.1); Hemoglobin 11.8 g/dL (12.9-16.9); Mean Corpuscular HGB Conc 34.2 g/dL (31.6-35.5); Mean Corpuscular Hemoglobin 32.3 pg (28.0-33.3); Mean Corpuscular Volume 94.5 fL (83.0-100.0); Mean Platelet Volume 9.4 fL (9.4-12.4); Platelet Count 223 K/mcL (140-400); Red Blood Count 3.65 M/mcL (4.19-5.50); Red Cell Distribution Width 12.3 % (11.5-14.5)
--- NOTE | 2017-09-21 09:20 | Electrocardiograph Report ---
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
[2017-09-21 09:21] LABS: Calcium 9.3 mg/dL (8.6-10.3)
--- NOTE | 2017-09-21 09:40 | Internal Med Progress Note ---
Date of Encounter: 09/21/17 Time of Encounter: 09:38 - Assessment and plan (1) Congestive heart failure Current Visit: Yes Status: Acute Assessment and plan: presented with shortness of breath and lower extremity edema. BNP 826, CXR digestive of congestive heart failure. 09/20/2017 TTE with EF 60%, diastolic dysfunction. Symptoms improving with IV Lasix however he appears to have slightly worsened renal function. Continue IV Lasix for now, closely monitor renal function. Will likely need Lasix at discharge. Continue strict I's and O 's, low-sodium diet, daily weight. Qualifiers: Heart failure type: combined systolic and diastolic Heart failure chronicity: acute on chronic Qualified Code(s): I50.43 - Acute on chronic combined systolic (congestive) and diastolic (congestive) heart failure (2) HTN (hypertension) Current Visit: Yes Status: Acute Assessment and plan: per hx. Appears to be not well controlled. Discussed with Nephrology and will discharge patient home on oral lasix with outpatient follow-up. Qualifiers: Hypertension type: unspecified Qualified Code(s): I10 - Essential (primary ) hypertension (3) CAD (coronary artery disease) Current Visit: Yes Status: Acute Assessment and plan: per hx. Asymptomatic, denied chest pain. Cont home ASA, BB, hydralazine, statin. Qualifiers: Coronary Disease-Associated Artery/Lesion type: unspecified vessel or lesion type [place] vs. transplanted heart: [place] heart Associated angina: angina presence unspecified Qualified Code(s): I25.10 - Atherosclerotic heart disease of [place] coronary artery without angina pectoris (4) HLD (hyperlipidemia) Current Visit: Yes Status: Acute Assessment and plan: per hx. Cont home statin Qualifiers: Hyperlipidemia type: unspecified Qualified Code(s): E78.5 - Hyperlipidemia , unspecified (5) CKD (chronic kidney disease), stage IV Current Visit: Yes Status: Acute Assessment and plan: Sent from grain spouter office. Nephrology is consulted here. Monitor kidney function while diuresing. (6) DVT prophylaxis Current Visit: Yes Status: Acute Assessment and plan: Heparin - Time Spent With Patient Total time spent is greater than 50% in coordination of care (as documented) at patient's floor/unit and/or counseling patient: - Subjective Interval history: Seen and examined at bedside, patient is new to me. Information obtained from chart review and patient report. Sitting up on edge of bed, says he feels significantly better and would like to go home today. Breathing is improved and swelling in legs is significantly improved. Denies chest pain, has some shortness of breath with exertion. - Constitutional Vitals: Temp Pulse Resp BP Pulse Ox 98.1 F 67 16 160/87 92 09/21/17 07:49 09/21/17 07:49 09/21/17 07:49 09/21/17 07:49 09/21/17 07:49 General appearance: Present: cooperative, A&O X 3, no acute distress, answers questions appropriately - Head Head exam: Present: atraumatic, normocephalic - Eye Eye exam: Present: PERRL, conjuntiva pink, sclera anicteric Pupils: Present: PERRL - Neck Neck exam general surgery: Present: supple, trachea midline. Absent: lymphadenopathy - Respiratory Respiratory exam: Present: decreased breath sounds, CTAB. Absent: accessory muscle use, rales, rhonchi, wheezes - Cardiovascular Cardiovascular exam: Present: RRR, +S1, +S2. Absent: diastolic murmur, gallop, rubs, systolic murmur - GI/Abdominal GI/Abdominal exam: Present: normal bowel sounds, soft, no peritoneal signs. Absent: distended, tenderness - Extremities Exam Extremities exam: Present: pedal edema, warm, radial pulses palpable and symmetrical. Absent: calf tenderness, cyanotic - Neurological Exam Neurological exam: Present: CN II-XII intact, oriented X3, no focal deficits. Absent: pronater drift, facial droop, speech deficit - Skin Skin exam: Present: dry, intact Internal Medicine: Result - Labs CBC & Chem 7: 09/21/17 08:51 09/21/17 08:51 Labs: Short CBC 09/21/17 Range/Units 08:51 WBC 8.2 (4.3-11.1) K/mcL Hgb 11.8 L (12.9-16.9) g/dL Hct 34.5 L (37.5-50.1) % Plt Count 223 (140-400) K/mcL BMP 09/21/17 08:51 Sodium 139 Potassium 4.0 Chloride 105 Carbon Dioxide 26 BUN 51 H Creatinine 2.89 H Glucose 155 H Calcium 9.3 Urine 09/21/17 Range/Units 05:34 Urine Color Yellow (Yellow) Urine Clarity Clear (Clear) Urine pH 6.0 (5.0-8.0) pH Units Ur Specific [place] 1.014 (1.010-1.025) Urine Protein 100 H (Neg-Trace) mg/dL Urine Glucose (UA) Normal (Normal) mg/dL - Impressions Impressions Echocardiogram 09/20/17 19:09 Impressions: LVEF 60-65%. Mild concentric left ventricular hypertrophy. Moderate left ventricular diastolic dysfunction. Normal right ventricular structure and function. Mild-moderate mitral regurgitation. Mild tricuspid regurgitation. Mild pulmonary hypertension. Left Ventricular Wall Motion: Rest Echo Findings All wall segments showed normal motion. Findings: Study Quality * Technically adequate exam. ECG Findings * Normal sinus rhythm. Left Ventricle * LVEF 60-65%. * Mild concentric left ventricular hypertrophy. * Moderate left ventricular diastolic dysfunction. Right Ventricle * Normal right ventricular structure and function. Left Atrium * Moderately dilated left atrium. Right Atrium * Normal right atrial size. Aortic Valve * No aortic regurgitation. * Trileaflet aortic valve. * No aortic stenosis. Mitral Valve * Normal mitral valve structure. * No mitral stenosis. * Mild-moderate mitral regurgitation. Tricuspid Valve * Tricuspid valve not well visualized. * Mild tricuspid regurgitation. * Estimated RA pressure is 8 mmHg. * Estimated RVSP is 39 mmHg. * Mild pulmonary hypertension. Pulmonic Valve * Pulmonic valve is not well visualized. * No pulmonic stenosis. * No pulmonic regurgitation. Pulmonary Artery * Pulmonary artery not well visualized. Aorta * Normally sized aortic root. Pericardium * There is no pericardial effusion present. Interatrial Septum * No evidence of PFO by color Doppler. IVC * The IVC is dilated. * > 50% respiratory change Consult Discharge Plan - Plan Referrals: Kayla Hamilton, MARIAM [Primary Care Provider] - 09/24/17 1:00 pm (Please follow up as schedule..)
--- NOTE | 2017-09-21 10:15 | Discharge Summary ---
- NOTES TO OUTPATIENT PROVIDER Notes to Outpatient Provider: Will need repeat BMP in 1 week to monitor renal function Orders not resulted at time of discharge: Pending orders 09/21/17 03:52 Vitamin D 25 Hydroxy AM 0400 Date of Encounter: 09/21/17 Time of Encounter: 10:11 - Discharge Diagnosis (1) CKD (chronic kidney disease), stage IV Priority: Primary Status: Acute Comments: sent to ED from application architect office for further evaluation of lower extremity edema and shortness of breath. He was found to be in acute diastolic heart failure exacerbation as noted below. Evaluated by nephrology who felt renal function at baseline and recommended discharging home on oral Lasix. Will need repeat BMP within 1 week and nephrology follow up outpatient. (2) Congestive heart failure Priority: Primary Status: Acute Comments: presented with shortness of breath and lower extremity edema. BNP 826, CXR digestive of congestive heart failure. 09/20/2017 TTE with EF 60%, diastolic dysfunction. Symptoms improved with IV Lasix; negative 3 liters. Educated on the importance of low sodium diet, fluid restriction and daily weights. Discharge home on Lasix 20 mg twice a day. Recommend follow-up with PCP within 1-2 weeks. Qualifiers: Heart failure type: combined systolic and diastolic Heart failure chronicity: acute on chronic Qualified Code(s): I50.43 - Acute on chronic combined systolic (congestive) and diastolic (congestive) heart failure (3) HTN (hypertension) Priority: Primary Status: Acute Comments: per hx. Appears to be not well controlled. Discussed with Nephrology who recommended continuing home BP medication and adding oral Lasix at discharge. Recommend follow-up with PCP within one week for BP recheck Qualifiers: Hypertension type: essential hypertension Qualified Code(s): I10 - Essential (primary) hypertension (4) CAD (coronary artery disease) Priority: Secondary Status: Chronic Comments: per hx. Asymptomatic, denied chest pain. Cont home ASA, BB, hydralazine, statin. Qualifiers: Coronary Disease-Associated Artery/Lesion type: unspecified vessel or lesion type [place] vs. transplanted heart: [place] heart Associated angina: angina presence unspecified Qualified Code(s): I25.10 - Atherosclerotic heart disease of [place] coronary artery without angina pectoris (5) HLD (hyperlipidemia) Priority: Secondary Status: Chronic Comments: per hx. Cont home statin Qualifiers: Hyperlipidemia type: unspecified Qualified Code(s): E78.5 - Hyperlipidemia , unspecified (6) PAD (peripheral artery disease) Priority: Secondary Status: Chronic Comments: per hx. Follows with Vascular outpatient. Cont home ASA, BB, statin (7) Tobacco abuse Priority: Secondary Status: Chronic Comments: current smoker; cessation advised but not likely. Hospital course: Please see assessment and plan for Hospital course Discharge discussed with: patient (Seen and examined at bedside, patient is new to me. Information obtained from chart review and patient report. Sitting up on edge of bed, says he feels significantly better and would like to go home today. Breathing is improved and swelling in legs is significantly improved. Denies chest pain, has some shortness of breath with exertion. Discussed with Dr. Hubbard to discharge home on oral Lasix with outpatient follow-up with nephrology standpoint.) - Time Spent with Patient Total time spent providing and/or coordinating discharge services: - Discharge Medications Prescriptions: Furosemide [Lasix] 20 mg PO BID #60 tablet Home Medications: Atorvastatin [Lipitor] 40 mg PO HS 02/26/15 [History] Carvedilol [Coreg] 25 mg PO BID 02/26/15 [History] Hydralazine HCl 100 mg PO TID 02/26/15 [History] Minoxidil 10 mg PO DAILY 02/26/15 [History] NIFEdipine [Nifedical Xl] 60 mg PO BID 02/26/15 [History] OxyCODONE/APAP 7.5/325 [Percocet 7.5/325] 1 each PO Q4HR 02/26/15 [History] Albuterol Sulfate [Ventolin Hfa] 2 puff IH BID PRN 06/30/16 [History] Ascorbate Calcium [Vitamin C] 500 mg PO DAILY 06/30/16 [History] Aspirin 81 mg PO DAILY 06/30/16 [History] BuPROPion XL (24 HR) [Wellbutrin Xl] 150 mg PO BID 06/30/16 [History] Cholecalciferol (D-3) [Vitamin D] 1,000 unit PO DAILY 06/30/16 [History] Cyanocobalamin (Vitamin B-12) [Vitamin B-12] 1,000 mcg SL DAILY 06/30/16 [ History] Ferrous Sulfate [Iron] 325 mg PO DAILY 06/30/16 [History] Multivit-Min/FA/Lycopen/Lutein [Centrum Silver Tablet] 1 each PO DAILY 06/30/16 [History] [place]-3/Dha/Epa/Fish Oil [Fish Oil 1,000 mg Softgel] 1 each PO DAILY 06/30/16 [ History] Testosterone Cypionate [Depo-Testosterone] 100 mg IM QWEEK 06/30/16 [History] Fluticasone Propionate Nasal [Flonase] 1 spr NS BID 09/19/17 [History] Meclizine HCl [Verticalm] 25 mg PO Q6H 09/19/17 [History] Ondansetron ODT [Zofran ODT] 4 mg SL Q4HR 09/19/17 [History] Pregabalin [Lyrica] 75 mg PO BID 09/19/17 [History] Umeclidinium Brm/Vilanterol Tr [Anoro Ellipta 62.5-25 Mcg INH] 1 puff IH DAILY 09/19/17 [History] Vitamin E (Dl,Tocopheryl Acet) [Vitamin E] 400 unit PO DAILY 09/19/17 [History] clonazePAM [Klonopin] 1 tab PO BID 09/19/17 [History] hydroCHLOROthiazide [Hydrochlorothiazide] 25 mg PO DAILY 09/19/17 [History] Furosemide [Lasix] 20 mg PO BID #60 tablet 09/21/17 [Rx] Allergies/Adverse Reactions: 3 Allergy/AdvReac Type Severity Reaction Status Date / Time No Known Allergies Allergy Verified 06/30/16 10:28 Date of admission: 09/19/17 15:18 Primary care physician: Kayla Hamilton Consults: 09/19/17 15:27 Consult to Nephrology [CONS] Stat Consulting Provider: Kidney Mary/TIFFANY/SOPHIA/AMANDA Reason for Consult: ESRD Call Completed: Yes Discharging clinician: Meme Hoang Anticipated date of discharge: 09/21/17 - Constitutional Vitals: Temp Pulse Resp BP Pulse Ox 98.1 F 67 16 160/87 92 09/21/17 07:49 09/21/17 07:49 09/21/17 07:49 09/21/17 07:49 09/21/17 07:49 General appearance: Present: cooperative, A&O X 3, no acute distress, answers questions appropriately - Head Head exam: Present: atraumatic, normocephalic - Eye Eye exam: Present: PERRL, conjuntiva pink, sclera anicteric Pupils: Present: PERRL - Neck Neck exam general surgery: Present: supple, trachea midline. Absent: lymphadenopathy - Respiratory Respiratory exam: Present: CTAB. Absent: accessory muscle use, rales, rhonchi, wheezes - Cardiovascular Cardiovascular exam: Present: RRR, +S1, +S2. Absent: diastolic murmur, gallop, rubs, systolic murmur - GI/Abdominal GI/Abdominal exam: Present: normal bowel sounds, soft, no peritoneal signs. Absent: distended, tenderness - Extremities Exam Extremities exam: Present: pedal edema, warm, radial pulses palpable and symmetrical. Absent: calf tenderness, cyanotic - Neurological Exam Neurological exam: Present: CN II-XII intact, oriented X3, no focal deficits. Absent: pronater drift, facial droop, speech deficit - Skin Skin exam: Present: dry, intact - Patient Status Disposition: Home, Self-Care Condition: Good Functional capacity at discharge: independent ambulation Overall status at discharge: patient is progressing back to baseline - Discharge Instructions Instructions: Heart Failure (DC), Furosemide (By mouth), Seasoning Without Salt (DC), Low Sodium Diet (DC), How to Stop Smoking (DC) Follow Up With: Kayla Hamilton CNP [Primary Care Provider] - 09/24/17 1:00 pm (Please follow up as schedule..) Bryant Dahl MD [Partnered Physician] - (Please call for a follow- up appointment via not heard from the office within one week) - Diet and Activity Activity: increase activity as tolerated Diet: low fat, low cholesterol, low salt diet
--- NOTE | 2017-09-21 10:49 | Nephrology Progress Note ---
Date of Encounter: 09/21/17 Time of Encounter: 09:15 - Assessment and Plan (1) CKD (chronic kidney disease), stage IV Status: Chronic He previously did not tolerate lasix 40mg twice daily, he affirmed, and had not been taking any "water pills" for "three weeks", according to the pt, prior to this admission. Since his volume status has improved and overall his eGFR has improved during this admission with diuresis, I recommend a maintenance dose of a loop diuretic. Since he did not tolerate Lasix 40mg po bid, I recommend Lasix 20mg po bid. Plus he'll need further titration most likely of his diuretics with respect to his renal labs, which should be checked in about 1 week after discharge, plus hospital follow up with my colleague Dr. Theodore. Discussed with the Hospitalist. Reasonable to discharge today. Thank you. (2) Peripheral edema Status: Acute (3) HTN (hypertension) Status: Chronic Qualifiers: Hypertension type: essential hypertension Qualified Code(s): I10 - Essential (primary) hypertension (4) Tobacco abuse Status: Chronic Subjective Principal diagnosis: BEHZAD Interval history: Pt was s/e and he did not affirm N/V/D or F/C or CP. He reported being a longtime pt of Dr. Theodore'marilin and has has suffered longstanding uncontrolled HTN, he said. Objective - Vital Signs Vital signs: Vital Signs Temp Pulse Resp BP Pulse Ox 09/21/17 10:38 98.1 F 67 16 160/87 92 09/21/17 07:49 98.1 F 67 16 160/87 92 09/21/17 07:45 16 92 09/21/17 03:21 98.1 F 72 17 154/77 91 09/20/17 23:09 98.1 F 71 18 152/61 91 09/20/17 19:24 97.9 F 66 17 121/63 91 09/20/17 16:19 97.7 F 66 16 119/64 91 09/20/17 13:39 132/76 09/20/17 12:11 98.0 F 65 16 186/81 91 09/20/17 10:47 16 93 Intake and Output 09/20/17 09/21/17 09/21/17 23:59 07:59 15:59 Intake Total 840 / 840 480 / 480 Output Total 1475 / 1475 560 / 560 Balance -635 / -635 -560 / -560 480 / 480 Intake: Oral 840 / 840 480 / 480 Output: Urine 1475 / 1475 560 / 560 Other: Meal Dinner Breakfast Percent of Meal Consumed 100% 100% # Voids 1 - General Appearance General appearance: Present: well-developed, well-nourished, appears started age EENT: Present: ATNC, PERRL Neck: Present: supple Respiratory: Present: wheezing Cardiology: Present: no edema, regular rate, regular rhythm, normal S1, normal S2 Gastrointestinal: Present: normoactive bowel sounds, no tenderness, no guarding Integumentary: Present: no rash, warm and dry Neurologic: Present: no focal deficit, alert and oriented x3 Musculoskeletal: Present: no deformities, no erythema, no cyanosis Psychiatric: Present: mood/affect appropriate, cooperative (Echo was without systolic dysfunction. ) - Lab 09/21/17 08:51 09/21/17 08:51 Most recent lab results Calcium 9.3 mg/dL (8.6-10.3) 09/21/17 08:51 Urine Creatinine 52 mg/dL 09/21/17 05:34 Urine Total Protein 71 mg/dL (1-14) H 09/21/17 05:34 Consult Discharge Plan - Plan Instructions: Furosemide (By mouth), Heart Failure (DC), How to Stop Smoking ( DC), Seasoning Without Salt (DC), Low Sodium Diet (DC) Referrals: Bryant Dahl MD [Partnered Physician] - (Please call for a follow- up appointment via not heard from the office within one week) Kayla Hamilton CNP [Primary Care Provider] - 09/24/17 1:00 pm (Please follow up as schedule..) Prescriptions: cloNIDine HCl [CloNIDine HCl] 0.1 mg PO BID #60 tablet Furosemide [Lasix] 20 mg PO BID #60 tablet
[2017-09-21 11:19] VITALS: BP 196/105
[2017-09-21] MEDS ORDERED: cloNIDine HCl 0.1 MG TABLET PO ONE (12:34)
== END 2017-09-21 12:40 | disposition home or self-care (01) ==
LOC: 2ANU 11:32 → EMEROO 11:32 → 2ANU 16:25
PROVIDERS: ADMIT Nurse Practitioner; ATTEND Family Medicine

== ENCOUNTER 2020-04-11 22:59 | Inpatient (IN) ==
[2020-04-12 00:50] LABS: Basophils % 0.5 %; Eosinophils % 0.5 %; Hematocrit 24.3 % (37.5-50.1); Hemoglobin 7.2 g/dL (12.9-16.9); Immature Granulocytes % 0.3 % (0-4); Lymphocytes # 0.5 K/mcL (0.6-4.6); Lymphocytes % 5.7 %; Mean Corpuscular HGB Conc 29.6 g/dL (31.6-35.5); Mean Corpuscular Hemoglobin 30.6 pg (28.0-33.3); Mean Corpuscular Volume 103.4 fL (83.0-100.0); Mean Platelet Volume 9.7 fL (9.4-12.4); Monocytes # 1.1 K/mcL (0.0-1.3); Monocytes % 12.8 %; Neutrophils # 6.9 K/mcL (1.6-8.9); Platelet Count 227 K/mcL (140-400); Red Blood Count 2.35 M/mcL (4.19-5.50); Red Cell Distribution Width 18.6 % (11.5-14.5); Segmented Neutrophils % 80.2 %; White Blood Count 8.6 K/mcL (4.3-11.1)
[2020-04-12 00:55] LABS: INR 1.5; Prothrombin Time 17.3 Seconds (9.4-12.1)
[2020-04-12] MEDS ORDERED: *HR* LORazepam 2 MG/ML VIAL IVP ONE (01:17)
[2020-04-12 01:19] LABS: Albumin 3.3 g/dL (3.5-5.7); Albumin/Globulin Ratio 1.4 (1.1-2.2); Bilirubin,Direct 0.4 mg/dL (0.0-0.2); Bilirubin,Indirect 0.7 mg/dL (0.0-1.0); Bilirubin,Total 1.1 mg/dL (0.3-1.0); Calcium 9.2 mg/dL (8.6-10.3); Globulin 2.4 g/dL (2.4-3.5); Potassium 4.9 mEq/L (3.5-5.1); Total Protein 5.7 g/dL (6.4-8.9); Troponin I 0.11 ng/mL (< 0.04)
[2020-04-12 01:40] LABS: Adenovirus Not Detected (Not Detect); Bordetella Pertussis Not Detected (Not Detect); Chlamydophila pneumoniae Not Detected (Not Detect); Coronavirus 229E Not Detected (Not Detect); Coronavirus HKU1 Not Detected (Not Detect); Coronavirus NL63 Not Detected (Not Detect); Coronavirus OC43 Not Detected (Not Detect); Human Metapneumovirus Not Detected (Not Detect); Human Rhinovirus/Enterovirus Not Detected (Not Detect); Influenza A Subtype 2009 H1 Not Detected (Not Detect); Influenza B Not Detected (Not Detect); Mycoplasma pneumoniae Not Detected (Not Detect); Parainfluenza Virus 1 Not Detected (Not Detect); Parainfluenza Virus 2 Not Detected (Not Detect); Parainfluenza Virus 3 Not Detected (Not Detect); Parainfluenza Virus 4 Not Detected (Not Detect); Respiratory Syncytial Virus Not Detected (Not Detect); SARS-CoV-2 Not Detected (Not Detect)
[2020-04-12] MEDS ORDERED: Naloxone 0.4 MG/ML INJ IVP PRN (02:49)
[2020-04-12] MEDS ORDERED: Ondansetron 4 MG/2 ML VIAL IVP PRN (02:49)
[2020-04-12] MEDS ORDERED: Perflutren Lipid Microsphere 1.3 ML in 0.9 % Sodium Chloride 8.7 ML IVP PRN (02:51)
[2020-04-12] MEDS ORDERED: Furosemide 40 MG/4 ML VIAL IVP ONE (02:53)
[2020-04-12 04:28] LABS: Basophils # 0.1 K/mcL (0.0-0.2); Basophils % 0.6 %; Eosinophils # 0.1 K/mcL (0.0-0.6); Hematocrit 24.6 % (37.5-50.1); Hemoglobin 7.5 g/dL (12.9-16.9); Immature Granulocytes % 0.6 % (0-4); Lymphocytes # 0.8 K/mcL (0.6-4.6); Lymphocytes % 8.7 %; Mean Corpuscular HGB Conc 30.5 g/dL (31.6-35.5); Mean Corpuscular Hemoglobin 31.8 pg (28.0-33.3); Mean Corpuscular Volume 104.2 fL (83.0-100.0); Mean Platelet Volume 9.7 fL (9.4-12.4); Monocytes # 1.3 K/mcL (0.0-1.3); Neutrophils # 6.6 K/mcL (1.6-8.9); Platelet Count 209 K/mcL (140-400); Red Blood Count 2.36 M/mcL (4.19-5.50); Red Cell Distribution Width 18.6 % (11.5-14.5); Segmented Neutrophils % 74.1 %; White Blood Count 8.9 K/mcL (4.3-11.1)
[2020-04-12] MEDS: clonazePAM 1 MG TABLET PO PRN ×2 (04:28→18:16)
[2020-04-12 04:41] LABS: Calcium 9.2 mg/dL (8.6-10.3); Potassium 4.9 mEq/L (3.5-5.1)
[2020-04-12 04:42] LABS: % Iron Saturation 5 % (20-55); Iron 10 mcg/dL (65-175); Transferrin 138 mg/dL (203-362)
[2020-04-12 05:01] LABS: Ferritin 660 ng/mL (20-250)
[2020-04-12 05:10] LABS: Folate 15.8 ng/mL (3.0-16.0)
[2020-04-12] MEDS: *HR* OxyCODONE/APAP 7.5/325 TABLET PO PRN ×3 (06:51→20:44)
[2020-04-12 06:55] LABS: Hepatitis B Surface Antibody < 3.10 mIU/mL
[2020-04-12 07:07] LABS: Hepatitis B Surface Antigen Nonreactive (Nonreactive)
[2020-04-12 08:07] LABS: Hematocrit 21.4 % (37.5-50.1); Hemoglobin 6.3 g/dL (12.9-16.9)
[2020-04-12 08:39] LABS: Bilirubin,Urine Negative (Negative); Blood,Urine Large (Negative); Clarity,Urine Clear (Clear); Color,Urine Yellow (Yellow); Glucose,Urine (UA) Normal (Normal); Ketones,Urine Negative (Negative); Leukocyte Esterase,Urine Negative (Negative); Nitrite,Urine Negative (Negative); Protein,Urine 100 mg/dL (Neg-Trace); Urobilinogen,Urine Normal (Normal)
[2020-04-12 08:52] LABS: Bacteria,Urine Few per hpf (None-Few); Mucus,Urine Few per lpf (None-Few); RBC,Urine 0-3 per hpf (0-3); Squamous Epithelial Cell,Urine Moderate per hpf (None-Few)
[2020-04-12] MEDS: Aspirin 81 MG TAB.CHEW PO SCH (09:32)
[2020-04-12] MEDS ORDERED: 0.9 % Sodium Chloride 250 ML IVC PRN (09:47)
[2020-04-12] MEDS ORDERED: 0.9 % Sodium Chloride 1,000 ML PRIME SCH (10:00)
[2020-04-12] MEDS ORDERED: Ferumoxytol 510 MG in 0.9 % Sodium Chloride 100 ML IVPB ONE (10:41)
[2020-04-12] MEDS ORDERED: levoFLOXacin 750 MG/150 ML 750 MG/150 ML BAG IVPB ONE (11:00)
[2020-04-12 17:05] LABS: Hematocrit 26.8 % (37.5-50.1); Hemoglobin 8.3 g/dL (12.9-16.9)
[2020-04-12] MEDS: Piperacillin/Tazobactam 3.375 GM in 0.9 % Sodium Chloride Mini Bag 100 ML IVPB SCH (18:16)
[2020-04-13] MEDS: Piperacillin/Tazobactam 3.375 GM in 0.9 % Sodium Chloride Mini Bag 100 ML IVPB SCH ×3 (00:11→22:22)
[2020-04-13] MEDS: clonazePAM 1 MG TABLET PO PRN ×2 (06:59→15:36)
[2020-04-13 07:12] LABS: Hematocrit 26.8 % (37.5-50.1); Hemoglobin 8.1 g/dL (12.9-16.9); Mean Corpuscular HGB Conc 30.2 g/dL (31.6-35.5); Mean Corpuscular Hemoglobin 29.3 pg (28.0-33.3); Mean Platelet Volume 9.7 fL (9.4-12.4); Platelet Count 181 K/mcL (140-400); Red Blood Count 2.76 M/mcL (4.19-5.50); Red Cell Distribution Width 19.1 % (11.5-14.5); White Blood Count 6.2 K/mcL (4.3-11.1)
[2020-04-13 07:16] LABS: Mean Corpuscular Volume 97.1 fL (83.0-100.0)
[2020-04-13 07:39] LABS: Calcium 8.7 mg/dL (8.6-10.3); Potassium 3.8 mEq/L (3.5-5.1)
[2020-04-13] MEDS: *HR* OxyCODONE/APAP 7.5/325 TABLET PO PRN ×2 (09:06→18:09)
[2020-04-13] MEDS: Aspirin 81 MG TAB.CHEW PO SCH (09:06)
[2020-04-13] MEDS: Nicotine 14 MG PATCH.TD24 TD SCH (10:09)
[2020-04-13] MEDS: Metoprolol XL (24 HR) Succ 25 MG TAB.ER.24H PO SCH ×2 (10:15→19:54)
[2020-04-13] MEDS: *HR* Amiodarone 200 MG TABLET PO SCH ×2 (10:15→19:54)
[2020-04-13] MEDS: Tiotropium 18 MCG inhalation IH SCH (11:15)
[2020-04-13] MEDS ORDERED: SODIUM CHLORIDE/NAHCO3/KCL/PEG 4,000 ML SOLN.RECON PO ONE (17:00)
[2020-04-13] MEDS: Pregabalin 50 MG CAPSULE PO SCH (19:52)
[2020-04-14 03:46] LABS: Hematocrit 27.6 % (37.5-50.1); Hemoglobin 8.2 g/dL (12.9-16.9); Mean Corpuscular HGB Conc 29.7 g/dL (31.6-35.5); Mean Corpuscular Hemoglobin 29.7 pg (28.0-33.3); Mean Platelet Volume 9.4 fL (9.4-12.4); Platelet Count 164 K/mcL (140-400); Red Blood Count 2.76 M/mcL (4.19-5.50); Red Cell Distribution Width 18.4 % (11.5-14.5); White Blood Count 5.2 K/mcL (4.3-11.1)
[2020-04-14 04:04] LABS: Calcium 8.3 mg/dL (8.6-10.3)
[2020-04-14] MEDS: clonazePAM 1 MG TABLET PO PRN ×2 (05:06→12:59)
[2020-04-14] MEDS ORDERED: 0.9 % Sodium Chloride 250 ML IVC PRN (07:16)
[2020-04-14] MEDS ORDERED: *HR* Heparin 10,000 UNIT/10 ML VIAL IV PRN (07:16)
[2020-04-14] MEDS ORDERED: 0.9 % Sodium Chloride 1,000 ML PRIME SCH (07:30)
[2020-04-14] MEDS: *HR* Amiodarone 200 MG TABLET PO SCH ×2 (07:31→19:53)
[2020-04-14] MEDS: Aspirin 81 MG TAB.CHEW PO SCH (07:31)
[2020-04-14] MEDS: Metoprolol XL (24 HR) Succ 25 MG TAB.ER.24H PO SCH ×2 (07:31→19:52)
[2020-04-14] MEDS: Pregabalin 50 MG CAPSULE PO SCH ×2 (07:31→19:53)
[2020-04-14] MEDS: Nicotine 14 MG PATCH.TD24 TD SCH (07:32)
[2020-04-14] MEDS: *HR* OxyCODONE/APAP 7.5/325 TABLET PO PRN ×2 (07:34→19:53)
[2020-04-14] MEDS: Tiotropium 18 MCG inhalation IH SCH (10:10)
[2020-04-14] MEDS: Piperacillin/Tazobactam 3.375 GM in 0.9 % Sodium Chloride Mini Bag 100 ML IVPB SCH (11:08)
[2020-04-14] MEDS ORDERED: Lidocaine -MPF 2% 2 ML VIAL ONE (14:22)
[2020-04-14] MEDS ORDERED: *HR* Propofol 200 MG/20 ML VIAL IVP ONE (14:22)
[2020-04-14] MEDS ORDERED: *HR* PHENYLEPHRINE 1,000 MCG/10 ML SYRINGE IVP ONE (14:26)
[2020-04-14] MEDS ORDERED: levoFLOXacin 500 MG/100 ML 500 MG/100 ML BAG IVPB SCH (18:00)
[2020-04-15] MEDS: clonazePAM 1 MG TABLET PO PRN ×2 (01:29→13:23)
[2020-04-15] MEDS: *HR* OxyCODONE/APAP 7.5/325 TABLET PO PRN ×2 (01:55→13:23)
[2020-04-15 03:08] LABS: Hemoglobin 7.9 g/dL (12.9-16.9); Mean Corpuscular HGB Conc 30.4 g/dL (31.6-35.5); Mean Corpuscular Hemoglobin 30.2 pg (28.0-33.3); Mean Corpuscular Volume 99.2 fL (83.0-100.0); Platelet Count 155 K/mcL (140-400); Red Blood Count 2.62 M/mcL (4.19-5.50); Red Cell Distribution Width 18.5 % (11.5-14.5)
[2020-04-15 03:26] LABS: Calcium 8.3 mg/dL (8.6-10.3); Potassium 3.9 mEq/L (3.5-5.1)
[2020-04-15] MEDS: *HR* Amiodarone 200 MG TABLET PO SCH ×2 (08:59→20:24)
[2020-04-15] MEDS: Aspirin 81 MG TAB.CHEW PO SCH (09:00)
[2020-04-15] MEDS: Nicotine 14 MG PATCH.TD24 TD SCH (09:00)
[2020-04-15] MEDS: Metoprolol XL (24 HR) Succ 25 MG TAB.ER.24H PO SCH ×2 (09:00→20:25)
[2020-04-15] MEDS: Pregabalin 50 MG CAPSULE PO SCH ×2 (09:00→20:24)
[2020-04-15] MEDS: Tiotropium 18 MCG inhalation IH SCH (10:33)
[2020-04-15] MEDS ORDERED: 0.9 % Sodium Chloride 250 ML IVC PRN (15:51)
[2020-04-16] MEDS: clonazePAM 1 MG TABLET PO PRN (02:00)
[2020-04-16] MEDS: *HR* OxyCODONE/APAP 7.5/325 TABLET PO PRN ×2 (03:11→12:18)
[2020-04-16] MEDS: *HR* Amiodarone 200 MG TABLET PO SCH (07:56)
[2020-04-16] MEDS: Nicotine 14 MG PATCH.TD24 TD SCH (07:56)
[2020-04-16] MEDS: Pregabalin 50 MG CAPSULE PO SCH (07:56)
[2020-04-16] MEDS: Aspirin 81 MG TAB.CHEW PO SCH (07:56)
[2020-04-16] MEDS: Tiotropium 18 MCG inhalation IH SCH (07:59)
[2020-04-16 09:14] LABS: Hematocrit 28.2 % (37.5-50.1); Hemoglobin 8.2 g/dL (12.9-16.9); Mean Corpuscular HGB Conc 29.1 g/dL (31.6-35.5); Mean Corpuscular Volume 103.3 fL (83.0-100.0); Platelet Count 177 K/mcL (140-400); Red Blood Count 2.73 M/mcL (4.19-5.50); Red Cell Distribution Width 18.5 % (11.5-14.5); White Blood Count 8.2 K/mcL (4.3-11.1)
[2020-04-16] MEDS ORDERED: clonazePAM 1 MG TABLET PO ONE (09:16)
[2020-04-16 09:32] LABS: Calcium 8.4 mg/dL (8.6-10.3); Potassium 3.6 mEq/L (3.5-5.1)
[2020-04-16] MEDS: Metoprolol XL (24 HR) Succ 25 MG TAB.ER.24H PO SCH (12:15)
[2020-04-16 12:42] LABS: Adenovirus Not Detected (Not Detect); Bordetella Pertussis Not Detected (Not Detect); Chlamydophila pneumoniae Not Detected (Not Detect); Coronavirus 229E Not Detected (Not Detect); Coronavirus HKU1 Not Detected (Not Detect); Coronavirus NL63 Not Detected (Not Detect); Coronavirus OC43 Not Detected (Not Detect); Human Metapneumovirus Not Detected (Not Detect); Human Rhinovirus/Enterovirus Not Detected (Not Detect); Influenza A Subtype 2009 H1 Not Detected (Not Detect); Influenza B Not Detected (Not Detect); Mycoplasma pneumoniae Not Detected (Not Detect); Parainfluenza Virus 1 Not Detected (Not Detect); Parainfluenza Virus 2 Not Detected (Not Detect); Parainfluenza Virus 3 Not Detected (Not Detect); Parainfluenza Virus 4 Not Detected (Not Detect); Respiratory Syncytial Virus Not Detected (Not Detect); SARS-CoV-2 Not Detected (Not Detect)
[2020-04-16 16:12] VITALS: BP 120/84
== END 2020-04-16 17:11 | disposition home health service (06) | DRG 811 ==
LOC: 2NNU 22:59 → EMEROOARM 22:59 → SUATTDRO 04-12 03:04 → 2NNU 04-12 03:54 → SUATTDRO 04-12 21:49 → 2ANU 04-14 06:41
PROVIDERS: ADMIT Internal Medicine; ATTEND Internal Medicine
PROC: ENDOEBX (2020-04-14 17:30)